=== PATIENT | female | born 1960 | race African-American/Black ===

== ENCOUNTER 2021-09-18 05:58 | Observation (INO) ==
[2021-09-10 12:45] LABS: Basophils % 0.6 % (0.0-0.8); Eosinophils # 0.2 10*3/uL (0.0-0.87); Eosinophils % 2.6 % (0.00-10.9); Hematocrit 34.7 VOL% (35.7-47.0); Hemoglobin 11.2 GM/DL (12.0-16.0); Immature Granulocytes % 0.5 %; Immature Granulocytes Absolute 0.03 #; Lymphocytes # 0.9 10*3/uL (1.4-4.0); Mean Corpuscular HGB Conc 32.3 GM/DL (32-36); Mean Corpuscular Volume 96.1 FL (87-102); Mean Platelet Volume 11.6 FL (9.6-12.0); Monocytes # 0.7 10*3/uL (0.11-0.8); Monocytes % 10.1 % (1.7-12.7); Neutrophils % 72.2 % (38.7-73.9); Platelet Count 224 T/CUMM (130-400); Red Blood Count 3.61 MC/CUMM (3.8-5.5); Red Cell Distribution Width 16.1 % (9.3-17.3); White Blood Count 6.6 T/CUMM (4-12)
[2021-09-10 13:32] LABS: Calcium 9.3 MG/DL (8.5-10.1); Osmolality,Calculated 288.3 MOS/KG (273-304); Potassium 3.6 MMOL/L (3.5-5.1); Thyroid Stimulating Hormone 0.663 uIU/ml (0.358-3.74)
[2021-09-18] MEDS ORDERED: ROCURONIUM 50 MG/5 ML VIAL IV ONE (06:55)
[2021-09-18] MEDS ORDERED: LIDOCAINE 2% 5 ML VIAL ONE ×2 (06:55→18:26)
[2021-09-18] MEDS ORDERED: propofoL 200 MG/20 ML VIAL IV ONE ×2 (06:55→18:26)
[2021-09-18] MEDS ORDERED: MIDAZOLAM 2 MG/2 ML VIAL ONE (06:56)
[2021-09-18] MEDS ORDERED: fentaNYL 100 MCG/2 ML VIAL ONE ×2 (06:56→09:27)
[2021-09-18] MEDS ORDERED: SEVOFLURANE 1 UNIT/15 MINUTE INH ONE ×4 (06:56→11:11)
[2021-09-18] MEDS: LACTATED RINGERS 1,000 ML IV SCH ×2 (08:00→11:01)
[2021-09-18] MEDS ORDERED: ceFAZolin 1,000 MG VIAL ONE (08:35)
[2021-09-18] MEDS ORDERED: BUPIVACAINE MPF 0.25% 10 ML VIAL ONE (08:52)
[2021-09-18] MEDS ORDERED: TISSUE ADHESIVE 1 EACH APPLICATOR TOP ONE (08:52)
[2021-09-18] MEDS ORDERED: LIDOCAINE 1%/EPI INJ 20 ML VIAL ONE (08:52)
[2021-09-18] MEDS ORDERED: GLYCOPYRROLATE 0.4 MG/2 ML VIAL ONE ×2 (09:47→11:16)
[2021-09-18] MEDS ORDERED: DEXAMETHASONE 4 MG/1 ML VIAL ONE ×2 (09:47→18:26)
[2021-09-18] MEDS ORDERED: LACTATED RINGERS 1,000 ML IV ONE (10:37)
[2021-09-18] MEDS ORDERED: ONDANSETRON 4 MG/2 ML VIAL ONE ×2 (11:11→18:26)
[2021-09-18] MEDS ORDERED: NEOSTIGMINE 10 MG/10 ML VIAL ONE (11:16)
[2021-09-18] MEDS ORDERED: HYDROmorphone 1 MG/1 ML SYRINGE IV PRN ×3 (12:00→14:10)
[2021-09-18] MEDS ORDERED: LACTATED RINGERS 1,000 ML IV SCH (12:00)
[2021-09-18] MEDS ORDERED: ONDANSETRON 4 MG/2 ML VIAL IV PRN ×2 (12:00→14:10)
[2021-09-18] MEDS ORDERED: hydrALAZINE 20 MG/1 ML VIAL ONE ×2 (12:21→19:02)
[2021-09-18] MEDS ORDERED: hydrALAZINE 20 MG/1 ML VIAL IV ONE ×3 (12:22→19:15)
[2021-09-18] MEDS ORDERED: tiZANidine 4 MG TABLET PO PRN (13:03)
[2021-09-18] MEDS ORDERED: ACETAMINOPHEN 325 MG TABLET PO PRN (14:10)
[2021-09-18] MEDS ORDERED: KETOROLAC 15 MG/1 ML VIAL IV PRN (14:10)
[2021-09-18] MEDS ORDERED: ALBUTEROL/IPRATROPIUM 3 ML NEB RESP TX PRN (14:10)
[2021-09-18] MEDS ORDERED: METOCLOPRAMIDE 10 MG/2 ML VIAL ONE (17:43)
[2021-09-18] MEDS ORDERED: MICROFIBRILLAR COLLAGEN POWDER 1 GM CAN TOP ONE (18:13)
[2021-09-18] MEDS ORDERED: SODIUM CHLORIDE 0.9% 1,000 ML IV ONE (18:26)
[2021-09-18] MEDS ORDERED: SUCCINYLCHOLINE 200 MG/10 ML VIAL ONE (18:26)
[2021-09-18] MEDS ORDERED: LABETALOL 20 MG/4 ML SYRINGE IV ONE ×3 (18:44→18:58)
[2021-09-18] MEDS ORDERED: carvediloL 25 MG TABLET PO SCH (19:00)
[2021-09-18] MEDS ORDERED: ATORVASTATIN 40 MG TABLET PO SCH (19:00)
[2021-09-18] MEDS ORDERED: amLODIPine 5 MG TABLET PO ONE (20:20)
[2021-09-18] MEDS: ceFAZolin 2,000 MG/50 ML DUPLEX IV SCH (20:54)
[2021-09-18] MEDS ORDERED: FERROUS SULFATE 325 MG TABLET PO SCH (21:00)
[2021-09-18] MEDS ORDERED: SODIUM CHLORIDE 0.9% 500 ML IV ONE (23:41)
[2021-09-18] MEDS ORDERED: SODIUM CHLOR 0.45% KCL 20 MEQ 20 MEQ/1,000 ML BAG IV SCH (23:45)
[2021-09-19] MEDS: ceFAZolin 2,000 MG/50 ML DUPLEX IV SCH (04:45)
[2021-09-19 05:26] LABS: Basophils % 0.1 % (0.0-0.8); Hematocrit 33.5 VOL% (35.7-47.0); Hemoglobin 10.9 GM/DL (12.0-16.0); Immature Granulocytes % 0.6 %; Immature Granulocytes Absolute 0.08 #; Lymphocytes # 0.7 10*3/uL (1.4-4.0); Lymphocytes % 4.7 % (21.3-54.2); Mean Corpuscular HGB Conc 32.5 GM/DL (32-36); Mean Corpuscular Volume 94.9 FL (87-102); Mean Platelet Volume 10.7 FL (9.6-12.0); Monocytes # 0.7 10*3/uL (0.11-0.8); Monocytes % 5.2 % (1.7-12.7); Neutrophils % 89.4 % (38.7-73.9); Platelet Count 217 T/CUMM (130-400); Red Blood Count 3.53 MC/CUMM (3.8-5.5); Red Cell Distribution Width 16.4 % (9.3-17.3); White Blood Count 13.9 T/CUMM (4-12)
[2021-09-19 05:45] LABS: Calcium 8.7 MG/DL (8.5-10.1); Osmolality,Calculated 287.3 MOS/KG (273-304); Potassium 4.2 MMOL/L (3.5-5.1)
[2021-09-19 05:53] LABS: Lymphocytes 4 % (20-55); Platelet Estimate Adequate; Total Cells Counted 100
[2021-09-19 08:27] VITALS: BP 135/77
[2021-09-19] MEDS ORDERED: PANTOPRAZOLE 40 MG TABLET PO SCH (09:00)
[2021-09-19] MEDS ORDERED: lisinopriL 20 MG TABLET PO SCH (09:00)
[2021-09-19] MEDS ORDERED: allopurinoL 300 MG TABLET PO SCH (09:00)
[2021-09-19] MEDS ORDERED: amLODIPine 5 MG TABLET PO SCH (09:00)
[2021-09-19] MEDS ORDERED: FOLIC ACID 1 MG TABLET PO SCH (09:00)
[2021-09-19] MEDS ORDERED: FUROSEMIDE 40 MG TABLET PO SCH (09:00)
[2021-09-19] MEDS ORDERED: POTASSIUM CHLORIDE 10 MEQ TABLET PO SCH (09:00)
[2021-09-19] MEDS ORDERED: FERROUS SULFATE 325 MG TABLET PO SCH (09:00)
== END 2021-09-19 11:02 | disposition home or self-care (01) ==
LOC: N.OR 05:58 → N.TELES 05:58 → N.SDSINP 05:59 → N.TELES 12:49
PROVIDERS: ADMIT Surgery; ATTEND Surgery